=== PATIENT | male | born 1960 | race Caucasian/White ===

== ENCOUNTER → 2020-06-12 | Outpatient (CLI) | payer MEDICAID ==
[~2020-06-12] MED LIST: HOLD METFORMIN - RECEIVED CONTRAST 20 ML VIAL IV SCH; IOHEXOL 350 MG/ML 100 ML (OMNIPAQUE 350) VIAL IV ONE; NS 100 ML (IVPB) BAG IV ONE
[2020-06-12 08:57] LABS: ALANINE AMINOTRANSFERASE 13 U/L (0-55); ALKALINE PHOSPHATASE 78 U/L (40-136); BILIRUBIN,TOTAL 0.5 MG/DL (0.1-1.0); BUN/CREATININE RATIO 14; CALCIUM 8.7 MG/DL (8.5-10.1); CARBON DIOXIDE 25 MMOL/L (21-32); CHLORIDE 109 MMOL/L (98-107); CREATININE SERUM 1.03 MG/DL (0.60-1.30); GFR ESTIMATED > 60; GLUCOSE 80 MG/DL (70-105); POTASSIUM 3.6 MMOL/L (3.6-5.0); SODIUM 143 MMOL/L (135-145); TOTAL PROTEIN 6.9 GM/DL (6.4-8.2)
--- NOTE | 2020-06-12 09:50 | Diagnostic Imaging Report ---
Indication: Leg pain. Ankle brachial indices bilaterally are within normal limits 1.2 left and right. Impression: Normal bilateral ankle brachial indices. Dictated by: Dictated on workstation # [id number]
--- NOTE | 2020-06-12 10:16 | Diagnostic Imaging Report ---
PROCEDURE: CT chest without contrast. TECHNIQUE: Multiple contiguous axial images were obtained through the chest without the use of intravenous contrast. Auto Exposure Controls were utilized during the CT exam to meet ALARA standards for radiation dose reduction. INDICATION: Left chest wall pain with no known discrete injury. Noncontrasted chest CT performed as the patient reported history of IV contrast allergy upon arrival to the department. There is no rib fracture deformity, no bony destructive process. No findings of dislocation of the costochondral junction. The sternum and manubrium appeared intact. No chest wall mass or fluid collection. No axillary, hilar or mediastinal lymphadenopathy. Some bibasilar zones of subsegmental atelectasis. No findings suggestive of pneumonia. No suspicious lung mass or dominant pulmonary nodule. Probable incidental right tracheal diverticulum noted, No effusion or pneumothorax. No findings of pneumonia or edema. The visualized upper abdomen reveals a punctate 2 mm nonobstructing right upper pole renal calculus. IMPRESSION: No acute chest wall abnormality. Clear lungs. Nonobstructive right upper pole renal calculus noted. Dictated by: Dictated on workstation # [id number]
== END ==
LOC: RAD 08:11
PROVIDERS: ATTEND Nurse Practitioner Family
DX: I73.9 Peripheral vascular disease, unspecified (principal); J44.9 Chronic obstructive pulmonary disease, unspecified; I25.119 Atherosclerotic heart disease of native coronary artery with unspecified angina pectoris; N20.0 Calculus of kidney
CPT/HCPCS: 36415; 71250; 80053; 93922

== ENCOUNTER 2020-12-29 19:27 | Emergency (ER) | payer MEDICAID ==
[~2020-12-29] VITALS: Ht 170.1 cm; Wt 100.2 kg
--- NOTE | 2020-12-29 19:58 | ED Cough/URI ---
General Chief Complaint: Respiratory Problems Stated Complaint: SOA Source: patient Exam Limitations: no limitations History of Present Illness Date Seen by Provider: Dec 29, 2020 Time Seen by Provider: 19:56 Initial Comments Chest burning onset this evening. Chronic cough which is unchanged in nature related to his COPD. No fevers or chills. No body aches nausea vomiting or diarrhea. He coughed earlier as he always does but he believes he messed something up in his neck when he did it. He states he has some bulging disks and now has some worsening neck pain. It does not radiate down either arm. Timing/Duration: just prior to arrival Severity/Quality: other (Chronic unchanged cough) Prior Episodes/Possible Cause: no prior episodes Associated Symptoms: denies symptoms Allergies and Home Medications Allergies Coded Allergies: erythromycin base (Verified Allergy, Unknown, 12/29/20) iodine (Unverified Allergy, Unknown, 06/12/20) Home Medications Ketorolac Tromethamine 10 Mg Tablet, 10 MG PO BID PRN for PAIN-SEVERE (8-10) Prescribed by: JULIETA GALE on 12/29/202102 Levofloxacin 750 Mg Tablet, 750 MG PO DAILY Prescribed by: JULIETA GALE on 12/29/202056 Prednisone 20 Mg Tab, 40 MG PO DAILY Prescribed by: JULIETA GALE on 12/29/202056 Patient Home Medication List Home Medication List Reviewed: Yes Review of Systems Review of Systems Constitutional: see HPI EENTM: see HPI Respiratory: see HPI, cough Cardiovascular: no symptoms reported Genitourinary: no symptoms reported Musculoskeletal: no symptoms reported Skin: no symptoms reported Psychiatric/Neurological: No Symptoms Reported Hematologic/Lymphatic: No Symptoms Reported Immunological/Allergic: no symptoms reported Physical Exam Vital Signs - First Documented 12/29/20 20:22 Temp 36.9 Pulse 99 Resp 22 B/P (MAP) 158/125 (136) Pulse Ox 96 O2 Delivery Room Air Capillary Refill : Height: '" Weight: lbs. oz. kg; BMI Method: General Appearance: WD/WN, no apparent distress, other (No distress normal respiratory rate lungs are clear oxygen saturation 96% on room air) Eyes: Bilateral Eye Normal Inspection, Bilateral Eye PERRL, Bilateral Eye EOMI HEENT: normal ENT inspection, other (There is no erythema or tenderness over the left mastoid process. The left tympanic membrane is obscured by cerumen. Denies any pain to the left ear 1.5) Respiratory: normal breath sounds, no respiratory distress, no accessory muscle use Cardiovascular: regular rate, rhythm, no murmur Gastrointestinal: normal bowel sounds, non tender, soft Neurologic/Psychiatric: alert, normal mood/affect, oriented x 3 Skin: normal color, warm/dry Progress/Results/Core Measures Suspected Sepsis SIRS Temperature: Pulse: Respiratory Rate: Laboratory Tests 12/29/20 19:50: White Blood Count 10.0 Blood Pressure / Mean: Laboratory Tests 12/29/20 19:50: Creatinine 1.13, Platelet Count 213, Total Bilirubin 0.6 Results/Orders Lab Results Laboratory Tests Test 12/29/20 19:50 Range/Units White Blood Count 10.0 4.3-11.0 10^3/uL Red Blood Count 5.55 H 4.30-5.52 10^6/uL Hemoglobin 17.8 H 13.3-17.7 g/dL Hematocrit 51 40-54 % Mean Corpuscular Volume 92 80-99 fL Mean Corpuscular Hemoglobin 32 25-34 pg Mean Corpuscular Hemoglobin Concent 35 32-36 g/dL Red Cell Distribution Width 12.6 10.0-14.5 % Platelet Count 213 130-400 10^3/uL Mean Platelet Volume 9.8 9.0-12.2 fL Immature Granulocyte % (Auto) 0 % Neutrophils (%) (Auto) 47 42-75 % Lymphocytes (%) (Auto) 33 12-44 % Monocytes (%) (Auto) 8 0-12 % Eosinophils (%) (Auto) 11 H 0-10 % Basophils (%) (Auto) 1 0-10 % Neutrophils # (Auto) 4.7 1.8-7.8 10^3/uL Lymphocytes # (Auto) 3.3 1.0-4.0 10^3/uL Monocytes # (Auto) 0.8 0.0-1.0 10^3/uL Eosinophils # (Auto) 1.1 H 0.0-0.3 10^3/uL Basophils # (Auto) 0.1 0.0-0.1 10^3/uL Immature Granulocyte # (Auto) 0.0 0.0-0.1 10^3/uL Sodium Level 146 H 135-145 MMOL/L Potassium Level 3.7 3.6-5.0 MMOL/L Chloride Level 110 H 98-107 MMOL/L Carbon Dioxide Level 24 21-32 MMOL/L Anion Gap 12 5-14 MMOL/L Blood Urea Nitrogen 15 7-18 MG/DL Creatinine 1.13 0.60-1.30 MG/DL Estimat Glomerular Filtration Rate > 60 BUN/Creatinine Ratio 13 Glucose Level 104 70-105 MG/DL Calcium Level 9.2 8.5-10.1 MG/DL Corrected Calcium 9.0 8.5-10.1 MG/DL Total Bilirubin 0.6 0.1-1.0 MG/DL Aspartate Amino Transf (AST/SGOT) 14 5-34 U/L Alanine Aminotransferase (ALT/SGPT) 18 0-55 U/L Alkaline Phosphatase 76 40-136 U/L Total Protein 7.3 6.4-8.2 GM/DL Albumin 4.2 3.2-4.5 GM/DL My Orders Orders - JULIETA GALE APRN Chest Pa/Lat (2 View) (12/29/20 19:50) Cbc With Automated Diff (12/29/20 19:50) Comprehensive Metabolic Panel (12/29/20 19:50) Ekg Tracing (12/29/20 19:50) Ed Iv/Invasive Line Start (12/29/20 19:50) Ketorolac Injection (Toradol Injection) (12/29/20 20:00) Ct Head/Cervical Spine Wo (12/29/20 20:25) Levofloxacin Tablet (Levaquin Tablet) (12/29/20 21:00) Prednisone Tablet (Deltasone Tablet) (12/29/20 21:00) Medications Given in ED Current Medications Medications Dose Ordered Sig/Kate Route Start Time Stop Time Status Last Admin Dose Admin Ketorolac Tromethamine 15 mg ONCE ONCE IVP 12/29/20 20:00 12/29/20 20:01 DC 12/29/20 20:14 15 MG Vital Signs/I&O 12/29/20 20:22 Temp 36.9 Pulse 99 Resp 22 B/P (MAP) 158/125 (136) Pulse Ox 96 O2 Delivery Room Air Capillary Refill : Departure Impression Primary Impression: Left mastoid effusion Additional Impression: Left frontal sinusitis Disposition: HOME, SELF-CARE Condition: Stable Departure-Patient Inst. Decision time for Depature: 20:55 Referrals: REGINA CORONADO MD [facility][1]/SHIRA (PCP/Family) Primary Care Physician Patient Instructions: Sinusitis, Adult ED Add. Discharge Instructions: 1. Return to ER for any concerns. Take the steroids and antibiotics as directed. Follow-up with Dr. Coronado from ear nose and throat. All discharge instructions reviewed with patient and/or family. Voiced understanding. Scripts Ketorolac Tromethamine (Ketorolac Tromethamine) 10 Mg Tablet 10 MG PO BID PRN for PAIN-SEVERE (8-10), #8 TAB Prov: JULIETA GALE APRN 12/29/20 Levofloxacin (Levofloxacin) 750 Mg Tablet 750 MG PO DAILY, #5 TAB Prov: JULIETA GALE APRN 12/29/20 Prednisone (Prednisone) 20 Mg Tab 40 MG PO DAILY, #6 TAB 0 Refills Prov: JULIETA AGLE APRN 12/29/20 JULIETA GALE APRN Dec 29, 2020 19:58
[2020-12-29] MEDS ORDERED: KETOROLAC 30 MG/ML VIAL IVP ONE (20:00)
[2020-12-29 20:06] LABS: BASOPHILS # (AUTO) 0.1 10^3/uL (0.0-0.1); BASOPHILS % (AUTO) 1 % (0-10); EOSINOPHILS # (AUTO) 1.1 10^3/uL (0.0-0.3); EOSINOPHILS % (AUTO) 11 % (0-10); HEMATOCRIT 51 % (40-54); HEMOGLOBIN 17.8 g/dL (13.3-17.7); LYMPHOCYTES # (AUTO) 3.3 10^3/uL (1.0-4.0); LYMPHOCYTES % (AUTO) 33 % (12-44); MEAN CORPUSCULAR HEMOGLOBIN 32 pg (25-34); MEAN CORPUSCULAR HGB CONC 35 g/dL (32-36); MEAN CORPUSCULAR VOLUME 92 fL (80-99); MEAN PLATELET VOLUME 9.8 fL (9.0-12.2); MONOCYTES # (AUTO) 0.8 10^3/uL (0.0-1.0); MONOCYTES % (AUTO) 8 % (0-12); NEUTROPHILS # (AUTO) 4.7 10^3/uL (1.8-7.8); NEUTROPHILS % (AUTO) 47 % (42-75); PLATELET COUNT 213 10^3/uL (130-400)
[2020-12-29 20:24] LABS: ALANINE AMINOTRANSFERASE 18 U/L (0-55); ALBUMIN 4.2 GM/DL (3.2-4.5); ALKALINE PHOSPHATASE 76 U/L (40-136); BILIRUBIN,TOTAL 0.6 MG/DL (0.1-1.0); BUN/CREATININE RATIO 13; CALCIUM 9.2 MG/DL (8.5-10.1); CARBON DIOXIDE 24 MMOL/L (21-32); CHLORIDE 110 MMOL/L (98-107); CREATININE SERUM 1.13 MG/DL (0.60-1.30); GFR ESTIMATED > 60; GLUCOSE 104 MG/DL (70-105); POTASSIUM 3.7 MMOL/L (3.6-5.0); SODIUM 146 MMOL/L (135-145); TOTAL PROTEIN 7.3 GM/DL (6.4-8.2)
--- NOTE | 2020-12-29 20:48 | Diagnostic Imaging Report ---
PROCEDURE: CT head and CT cervical spine without contrast. TECHNIQUE: Multiple contiguous axial images were obtained through the brain and cervical spine without the use of intravenous contrast. Sagittal and coronal reformations through the cervical spine were then performed. Auto Exposure Controls were utilized during the CT exam to meet ALARA standards for radiation dose reduction. INDICATION: Neck pain CT HEAD: There is some fluid in the left frontal sinus. Ethmoid air cells and maxillary sinuses are clear. Sphenoid sinuses are clear. There is opacification of the left mastoid air cells. The ventricles are normal in size, shape and position. There are no masses or hemorrhages. There are no extra-axial fluid collections. IMPRESSION: 1. Left mastoid effusion. 2. Left frontal sinus membrane thickening that could be sinusitis. CT CERVICAL SPINE: The odontoid is intact. Atlantoaxial and basicervical relationships appear normal. Vertebral body heights and alignment appear normal. There is disc space narrowing at C5-C6 and C6-C7. There is no fracture or misalignment. IMPRESSION: 1. No acute abnormality is seen in the cervical spine. Dictated by: Dictated on workstation # [id number]
--- NOTE | 2020-12-29 20:56 | Diagnostic Imaging Report ---
INDICATION: Burning sensation in the chest. EXAM: PA and lateral chest FINDINGS: The heart size and pulmonary vascularity are normal. The lungs are clear. There are no effusions or pneumothoraces. IMPRESSION: Negative chest. Dictated by: Dictated on workstation # [id number]
[2020-12-29] MEDS ORDERED: LEVO750T39 PO (20:57)
[2020-12-29] MEDS ORDERED: PRD20T PO (20:57)
[2020-12-29] MEDS ORDERED: predniSONE 20 MG TAB PO ONE (21:00)
[2020-12-29] MEDS ORDERED: LEVOFLOXACIN 750 MG TAB (LEVAQUIN) PO ONE (21:00)
[2020-12-29] MEDS ORDERED: KETO10TA PO (21:03)
[2020-12-29 21:21] VITALS: BP 143/92
== END 2020-12-29 21:21 | disposition home or self-care (01) ==
LOC: EDUNIT# 19:27 → ER 19:28
DX: H74.8X2 Other specified disorders of left middle ear and mastoid (principal); J32.1 Chronic frontal sinusitis; Z88.1 Allergy status to other antibiotic agents; Z91.041 Radiographic dye allergy status; Z79.52 Long term (current) use of systemic steroids
CPT/HCPCS: 36415; 70450; 71046; 72125; 80053; 85025; 93005

== ENCOUNTER 2021-01-28 05:38 | Outpatient (CLI) | payer MEDICAID ==
[~2021-01-28] VITALS: Ht 170.2 cm; Wt 107.3 kg
[~2021-01-28 05:38] MED LIST changes: -HOLD METFORMIN - RECEIVED CONTRAST 20 ML VIAL IV SCH; -IOHEXOL 350 MG/ML 100 ML (OMNIPAQUE 350) VIAL IV ONE; +KETO10TA PO; +LEVO750T39 PO; -NS 100 ML (IVPB) BAG IV ONE; +PRD20T PO
[2021-01-28 08:39] VITALS: BP 143/101
[2021-01-28 09:03] LABS: BASOPHILS # (AUTO) 0.1 10^3/uL (0.0-0.1); BASOPHILS % (AUTO) 1 % (0-10); EOSINOPHILS % (AUTO) 11 % (0-10); HEMATOCRIT 50 % (40-54); HEMOGLOBIN 16.8 g/dL (13.3-17.7); LYMPHOCYTES # (AUTO) 3.2 10^3/uL (1.0-4.0); LYMPHOCYTES % (AUTO) 37 % (12-44); MEAN CORPUSCULAR HEMOGLOBIN 32 pg (25-34); MEAN CORPUSCULAR HGB CONC 34 g/dL (32-36); MEAN CORPUSCULAR VOLUME 95 fL (80-99); MEAN PLATELET VOLUME 9.9 fL (9.0-12.2); MONOCYTES # (AUTO) 0.9 10^3/uL (0.0-1.0); MONOCYTES % (AUTO) 10 % (0-12); NEUTROPHILS # (AUTO) 3.4 10^3/uL (1.8-7.8); NEUTROPHILS % (AUTO) 40 % (42-75); PLATELET COUNT 203 10^3/uL (130-400); WHITE BLOOD COUNT 8.6 10^3/uL (4.3-11.0)
[2021-01-28] MEDS ORDERED: RT-ALBUINH IH (09:06)
[2021-01-28] MEDS ORDERED: BUDE10.2 IH (09:06)
[2021-01-28 09:20] LABS: BUN/CREATININE RATIO 17; CALCIUM 8.7 MG/DL (8.5-10.1); CARBON DIOXIDE 21 MMOL/L (21-32); CHLORIDE 111 MMOL/L (98-107); CREATININE SERUM 0.96 MG/DL (0.60-1.30); GFR ESTIMATED > 60; GLUCOSE 95 MG/DL (70-105); POTASSIUM 4.1 MMOL/L (3.6-5.0); SODIUM 143 MMOL/L (135-145)
== END 2021-01-28 09:15 | disposition home or self-care (01) ==
LOC: PREOP 05:38
PROVIDERS: ATTEND Otolaryngology Otolaryngology/Facial Plastic Surgery
DX: Z01.812 Encounter for preprocedural laboratory examination (principal); R13.19 Other dysphagia; Z20.822 Contact with and (suspected) exposure to COVID-19
CPT/HCPCS: 80048; 85025; 87081; U0002; 36415; 87635

== ENCOUNTER 2021-01-30 06:21 | Day surgery (SDC) | payer MEDICAID ==
[~2021-01-30] VITALS: Ht 170.2 cm; Wt 107.3 kg
[2021-01-30] VITALS (9 sets, daily range): BP systolic 108–148; BP diastolic 71–99
[~2021-01-30 06:21] MED LIST changes: +BUDE10.2 IH; +RT-ALBUINH IH
[2021-01-30] MEDS ORDERED: LACTATED RINGERS 1,000 ML IV PRN (06:45)
[2021-01-30] MEDS ORDERED: LIDOCAINE PF 2% 5 ML (XYLOCAINE) VIAL ONE (08:50)
[2021-01-30] MEDS ORDERED: fentaNYL INJ 100 MCG/2 ML AMP ONE (08:50)
[2021-01-30] MEDS ORDERED: proPOfol 200 MG/20 ML (DIPRIVAN) VIAL IV ONE (08:50)
[2021-01-30] MEDS ORDERED: SEVOFLURANE (ULTANE) 15 ML INHAL SOLN ONE (08:50)
[2021-01-30] MEDS ORDERED: LIDOCAINE/EPI 1%-1:100,000 (XYLOCAINE) 20ML ONE (08:50)
[2021-01-30] MEDS ORDERED: MIDAZOLAM 2 MG/2 ML (VERSED) VIAL ONE (08:51)
[2021-01-30] MEDS ORDERED: ONDANSETRON 4 MG/2 ML (SDV) Z0FRAN ONE (08:54)
[2021-01-30] MEDS ORDERED: ROCURONIUM 10 MG/ML 5 ML SYRINGE IV ONE (09:11)
[2021-01-30] MEDS ORDERED: APAP 325 MG/10.15 ML LIQ (TYLENOL) UDC PO PRN (10:00)
[2021-01-30] MEDS ORDERED: HYDROcodone/APAP 5 MG/325 MG (LORTAB) TAB PO PRN (10:00)
[2021-01-30] MEDS ORDERED: NS IV 1000 ML 1,000 ML IV SCH (10:00)
--- NOTE | 2021-01-30 10:00 | Progress Note-Pre Operative ---
Pre-Operative Progress Note H&P Reviewed The H&P was reviewed, patient examined and no changes noted. 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
--- NOTE | 2021-01-30 10:00 | Progress Note-Post Operative ---
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 Specimen(s) collected/removed nasopharyngeal biopsy REGINA CARDENAS MD Jan 30, 2021 10:00
[2021-01-30] MEDS ORDERED: ONDANSETRON 4 MG/2 ML (SDV) Z0FRAN IVP PRN (10:15)
[2021-01-30] MEDS ORDERED: morphine INJ 10 MG/ML 1ML (SYR OR VIAL) IVP ONE (10:15)
[2021-01-30] MEDS ORDERED: HYDROmorphone 2 MG/ML VIAL (DILAUDID) IV ONE (10:15)
[2021-01-30] MEDS ORDERED: ACHD5005 PO (10:59)
[2021-01-30] MEDS ORDERED: GARAMYCIN OPTH LEFT EAR (10:59)
--- NOTE | 2021-01-30 11:57 | Anesthesia-General Post-Op ---
General Patient Condition Mental Status/LOC: Same as Preop Cardiovascular: Satisfactory Nausea/Vomiting: Absent Respiratory: Satisfactory Pain: Controlled Complications: Absent Post Op Complications Complications None Follow Up Care/Instructions Patient Instructions None needed. Anesthesia/Patient Condition Patient Condition Patient is doing well, no complaints, stable vital signs, no apparent adverse anesthesia problems. MICHAEL ADRIAN DO Jan 30, 2021 11:57
== END 2021-01-30 12:50 | disposition home or self-care (01) ==
LOC: SDC 06:21
PROVIDERS: ATTEND Otolaryngology Otolaryngology/Facial Plastic Surgery
DX: H65.22 Chronic serous otitis media, left ear (principal); H69.90 Unspecified Eustachian tube disorder, unspecified ear; J39.2 Other diseases of pharynx; J34.89 Other specified disorders of nose and nasal sinuses; R13.10 Dysphagia, unspecified; I10 Essential (primary) hypertension; J44.9 Chronic obstructive pulmonary disease, unspecified; K21.9 Gastro-esophageal reflux disease without esophagitis; E78.5 Hyperlipidemia, unspecified; E66.9 Obesity, unspecified; M19.90 Unspecified osteoarthritis, unspecified site; F17.200 Nicotine dependence, unspecified, uncomplicated; Z88.1 Allergy status to other antibiotic agents; Z88.8 Allergy status to other drugs, medicaments and biological substances; Z79.899 Other long term (current) drug therapy; Z86.73 Personal history of transient ischemic attack (TIA), and cerebral infarction without residual deficits; Z68.37 Body mass index [BMI] 37.0-37.9, adult; Z82.3 Family history of stroke; Z79.82 Long term (current) use of aspirin

== ENCOUNTER → 2021-02-02 | Outpatient (CLI) | payer MEDICAID ==
[~2021-02-02] MED LIST changes: +ACHD5005 PO; +BARIUM for suspension 96% w/w (Vanilla Silq Medium Density) PO ONE; +BARIUM for suspension 98% w/w (Vanilla Silq High Density) PO ONE; +GARAMYCIN OPTH LEFT EAR
--- NOTE | 2021-02-02 10:13 | Diagnostic Imaging Report ---
INDICATION: Dysphagia. The patient ingested effervescent crystals as well as thin and thick barium and imaging of esophagus was performed in multiple obliquities. Preliminary radiograph of the chest is unremarkable. The esophagus has a smooth contour. No mass or strictures identified. No hiatal hernia is identified. There were episodes of gastroesophageal reflux. There are also episodes of tertiary contractions and esophageal dysmotility. IMPRESSION: Generalized esophageal dysmotility and occasional gastroesophageal reflux. No other significant abnormality was detected. Dictated by: Dictated on workstation # [id number]
== END ==
LOC: RAD 09:03
PROVIDERS: ATTEND Otolaryngology Otolaryngology/Facial Plastic Surgery
DX: R13.10 Dysphagia, unspecified (principal)
CPT/HCPCS: 74220

== ENCOUNTER 2021-02-24 23:45 | Emergency (ER) | payer MEDICAID ==
[~2021-02-24] VITALS: Ht 172.7 cm; Wt 113.4 kg
[~2021-02-24 23:45] MED LIST changes: -BARIUM for suspension 96% w/w (Vanilla Silq Medium Density) PO ONE; -BARIUM for suspension 98% w/w (Vanilla Silq High Density) PO ONE
[2021-02-24 23:58] VITALS: BP 154/91
[2021-02-25] MEDS ORDERED: ASPIRIN 81 MG CHEW (CHILDREN'S ASA) PO ONE (00:15)
[2021-02-25] MEDS ORDERED: NITROGLYCERIN 0.4 MG SL TABS BTL 25'S SL PRN (00:15)
[2021-02-25 00:17] LABS: BASOPHILS # (AUTO) 0.1 10^3/uL (0.0-0.1); BASOPHILS % (AUTO) 1 % (0-10); EOSINOPHILS # (AUTO) 0.6 10^3/uL (0.0-0.3); EOSINOPHILS % (AUTO) 6 % (0-10); HEMATOCRIT 48 % (40-54); HEMOGLOBIN 16.5 g/dL (13.3-17.7); LYMPHOCYTES # (AUTO) 3.2 10^3/uL (1.0-4.0); LYMPHOCYTES % (AUTO) 31 % (12-44); MEAN CORPUSCULAR HEMOGLOBIN 32 pg (25-34); MEAN CORPUSCULAR HGB CONC 34 g/dL (32-36); MEAN CORPUSCULAR VOLUME 94 fL (80-99); MEAN PLATELET VOLUME 9.8 fL (9.0-12.2); MONOCYTES # (AUTO) 0.8 10^3/uL (0.0-1.0); MONOCYTES % (AUTO) 8 % (0-12); NEUTROPHILS # (AUTO) 5.7 10^3/uL (1.8-7.8); NEUTROPHILS % (AUTO) 55 % (42-75); PLATELET COUNT 216 10^3/uL (130-400); WHITE BLOOD COUNT 10.4 10^3/uL (4.3-11.0)
[2021-02-25 00:26] LABS: ALBUMIN 4.1 GM/DL (3.2-4.5); CHLORIDE 108 MMOL/L (98-107); POTASSIUM 3.8 MMOL/L (3.6-5.0); SODIUM 145 MMOL/L (135-145)
[2021-02-25 00:27] LABS: CALCIUM 9.2 MG/DL (8.5-10.1)
[2021-02-25 00:28] LABS: GLUCOSE 129 MG/DL (70-105)
[2021-02-25 00:29] LABS: TOTAL PROTEIN 7.3 GM/DL (6.4-8.2)
[2021-02-25 00:30] LABS: BILIRUBIN,TOTAL 0.3 MG/DL (0.1-1.0); CARBON DIOXIDE 24 MMOL/L (21-32); INR 0.9 (0.8-1.4); PROTHROMBIN TIME PATIENT 12.6 SEC (12.2-14.7)
[2021-02-25 00:32] LABS: ALKALINE PHOSPHATASE 91 U/L (40-136); CREATININE SERUM 1.05 MG/DL (0.60-1.30); GFR ESTIMATED > 60
[2021-02-25 00:33] LABS: BUN/CREATININE RATIO 16
[2021-02-25 00:35] LABS: ALANINE AMINOTRANSFERASE 14 U/L (0-55)
--- NOTE | 2021-02-25 07:49 | ED Chest Pain ---
General Chief Complaint: Chest Pain Stated Complaint: CP,LEFT ARM PAIN Nursing Triage Note: PT AMB TO ROOM 6 W/ CO "KNOTS IN LEFT ARM THAT GO TO TOP OF LEFT SIDE OF CHEST." PT HAS HAD LEFT ARM PAID X2 DAYS AND STATES THAT SX WORSENED TODAY AT 1900. PT DENIES SOA. Nursing Sepsis Screen: No Definite Risk Source: patient Exam Limitations: no limitations History of Present Illness Date Seen by Provider: February 25, 2021 Time Seen by Provider: 00:07 Initial Comments This 60-year-old man presents to the emergency room with complaints of left- sided chest pain and a pain described as "knots" in his left arm. The pain in his arm has been intermittent for the past 2 days. The chest pain started around 19:00. He denies any history of cardiac disease. He is wheezing but denies shortness of breath. Allergies and Home Medications Allergies Coded Allergies: erythromycin base (Verified Allergy, Unknown, 12/29/20) iodine (Unverified Allergy, Unknown, 06/12/20) Home Medications Albuterol Sulfate 1 Puff Puff, 2 PUFF IH Q4H PRN for WHEEZING, (Reported) 1 PUFF = 90 MCG Budesonide/Formoterol Fumarate 10.2 Gm Hfa.aer.ad, 2 PUFF IH BID, (Reported) Hydrocodone/Acetaminophen 1 Each Tablet, 1-2 TAB PO Q4H PRN for PAIN-MODERATE (5-7) Prescribed by: GALA SADLER on 01/30/21 1059 [Garamycin Opth Soln] , 3 DROPS LEFT EAR BID Prescribed by: GALA SADLER on 01/30/21 1059 Patient Home Medication List Home Medication List Reviewed: Yes Review of Systems Review of Systems Constitutional: no symptoms reported EENTM: No Symptoms Reported Respiratory: See HPI Cardiovascular: See HPI Gastrointestinal: No Symptoms Reported Genitourinary: No Symptoms Reported Musculoskeletal: no symptoms reported Skin: no symptoms reported Psychiatric/Neurological: No Symptoms Reported Endocrine: No Symptoms Reported Hematologic/Lymphatic: No Symptoms Reported Past Dhttiad-Swxuqq-Dvbdre Hx Past Med/Social Hx: Reviewed Nursing Past Med/Soc Hx Patient Social History Alcohol Use: Denies Use Smoking Status: Current Everyday Smoker Type Used: Cigarettes 2nd Hand Smoke Exposure: Yes Recent Infectious Disease Expo: No Recent Hopitalizations: No Seasonal Allergies Seasonal Allergies: Yes Past Medical History Surgeries: Yes (trach as child, "colon stapled" due to accident, ) Respiratory: Yes COPD Currently Using CPAP: No Currently Using BIPAP: No Cardiac: Yes (recently stopped all meds r/t upcoming sx) High Cholesterol, Hypertension Neurological: Yes Brain Tumor, Headaches /Migraines, TIA Genitourinary: No Gastrointestinal: Yes ("colon stapled" due to accident) Musculoskeletal: Yes Back Injury, Chronic Back Pain Endocrine: No HEENT: Yes (LEFT CSOM) Cancer: No Psychosocial: No Integumentary: No Blood Disorders: No Physical Exam Vital Signs Vital Signs - First Documented 02/24/21 23:58 Temp 36.5 Pulse 95 Resp 18 B/P (MAP) 154/91 (112) Pulse Ox 96 O2 Delivery Room Air Capillary Refill : Less Than 3 Seconds Height, Weight, BMI Height: '" Weight: lbs. oz. 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 Skin: Normal Color, Warm/Dry Progress/Results/Core Measures Results/Orders Lab Results Laboratory Tests Test 02/25/21 00:05 Range/Units White Blood Count 10.4 4.3-11.0 10^3/uL Red Blood Count 5.15 4.30-5.52 10^6/uL Hemoglobin 16.5 13.3-17.7 g/dL Hematocrit 48 40-54 % Mean Corpuscular Volume 94 80-99 fL Mean Corpuscular Hemoglobin 32 25-34 pg Mean Corpuscular Hemoglobin Concent 34 32-36 g/dL Red Cell Distribution Width 13.0 10.0-14.5 % Platelet Count 216 130-400 10^3/uL Mean Platelet Volume 9.8 9.0-12.2 fL Immature Granulocyte % (Auto) 0 % Neutrophils (%) (Auto) 55 42-75 % Lymphocytes (%) (Auto) 31 12-44 % Monocytes (%) (Auto) 8 0-12 % Eosinophils (%) (Auto) 6 0-10 % Basophils (%) (Auto) 1 0-10 % Neutrophils # (Auto) 5.7 1.8-7.8 10^3/uL Lymphocytes # (Auto) 3.2 1.0-4.0 10^3/uL Monocytes # (Auto) 0.8 0.0-1.0 10^3/uL Eosinophils # (Auto) 0.6 H 0.0-0.3 10^3/uL Basophils # (Auto) 0.1 0.0-0.1 10^3/uL Immature Granulocyte # (Auto) 0.0 0.0-0.1 10^3/uL Prothrombin Time 12.6 12.2-14.7 SEC INR Comment 0.9 0.8-1.4 Activated Partial Thromboplast Time 28 24-35 SEC Sodium Level 145 135-145 MMOL/L Potassium Level 3.8 3.6-5.0 MMOL/L Chloride Level 108 H 98-107 MMOL/L Carbon Dioxide Level 24 21-32 MMOL/L Anion Gap 13 5-14 MMOL/L Blood Urea Nitrogen 17 7-18 MG/DL Creatinine 1.05 0.60-1.30 MG/DL Estimat Glomerular Filtration Rate > 60 BUN/Creatinine Ratio 16 Glucose Level 129 H 70-105 MG/DL Calcium Level 9.2 8.5-10.1 MG/DL Corrected Calcium 9.1 8.5-10.1 MG/DL Magnesium Level 2.0 1.6-2.4 MG/DL Total Bilirubin 0.3 0.1-1.0 MG/DL Aspartate Amino Transf (AST/SGOT) 13 5-34 U/L Alanine Aminotransferase (ALT/SGPT) 14 0-55 U/L Alkaline Phosphatase 91 40-136 U/L Myoglobin 33.0 10.0-92.0 NG/ML Troponin I < 0.028 <0.028 NG/ML Total Protein 7.3 6.4-8.2 GM/DL Albumin 4.1 3.2-4.5 GM/DL My Orders Orders - JACE ASKEW MD Cbc With Automated Diff (02/25/21 00:07) Magnesium (02/25/21 00:07) Ekg Tracing (02/25/21 00:07) Comprehensive Metabolic Panel (02/25/21 00:07) Myoglobin Serum (02/25/21 00:07) Protime With Inr (02/25/21 00:07) Partial Thromboplastin Time (02/25/21 00:07) O2 (02/25/21 00:07) Monitor-Rhythm Ecg Trace Only (02/25/21 00:07) Ed Iv/Invasive Line Start (02/25/21 00:07) Troponin I (02/25/21 00:07) Nitroglycerin 0.4 Mg Btl 25's (Nitrostat (02/25/21 00:15) Aspirin Chewable Tablet (Baby Aspirin Ch (02/25/21 00:15) Medications Given in ED Vital Signs/I&O 02/24/21 02/24/21 23:58 23:58 Temp 36.5 Pulse 95 Resp 18 B/P (MAP) 154/91 (112) Pulse Ox 96 O2 Delivery Room Air Room Air Blood Pressure Mean: 112 Progress Progress Note : Time: 14:23 Progress Note Patient was treated with aspirin and nitroglycerin x1. This completely alleviated his pain. Work-up was otherwise unremarkable. I discussed the case with Dr. Paul who recommended a 3 or 4-hour repeat troponin. Patient declined and decided to leave AGAINST MEDICAL ADVICE. Encourage the patient to stay and explained the need to ensure he did not incur any significant heart injury. He expressed understanding but decided to leave anyway. Chest x-ray had also not yet been obtained prior to leaving [place]. Initial ECG Impression Date: February 25, 2021 Initial ECG Impression Time: 00:01 Initial ECG Rate: 89 Initial ECG Rhythm: Normal Sinus Initial ECG Intervals: Normal Initial ECG Impression: Normal Comment Normal sinus rhythm with no ST elevation or depression. No abnormal intervals or axis deviation. Departure Impression Primary Impression: Chest pain Qualified Codes: R07.9 - Chest pain, unspecified Additional Impression: Wheezing Disposition: 07 AGAINST MEDICAL ADVICE Condition: Against Medical Advice Departure-Patient Inst. Referrals: SARAH BANKS DO (PCP) Primary Care Physician JACE ASKEW MD February 25, 2021 07:49
== END 2021-02-25 01:44 | disposition left against medical advice (07) ==
LOC: EDUNIT# 23:45 → ER 23:48
DX: R07.9 Chest pain, unspecified (principal); R06.2 Wheezing; J44.9 Chronic obstructive pulmonary disease, unspecified; I10 Essential (primary) hypertension; G89.29 Other chronic pain; M54.9 Dorsalgia, unspecified; F17.210 Nicotine dependence, cigarettes, uncomplicated; Z86.73 Personal history of transient ischemic attack (TIA), and cerebral infarction without residual deficits; Z88.1 Allergy status to other antibiotic agents; Z91.041 Radiographic dye allergy status; Z79.891 Long term (current) use of opiate analgesic
CPT/HCPCS: 36415; 80053; 83735; 83874; 84484; 85025; 85610; 85730; 93005; 93041